=== PATIENT | male | born 1995 | race Caucasian/White ===

== ENCOUNTER 2017-06-24 16:34 | Emergency (ER) | payer OTHER ==
[~2017-06-24] VITALS: Ht 198.1 cm; Wt 116.2 kg
[2017-06-24] MEDS ORDERED: SERTRALINE HCL25 MG PO (19:03)
[2017-06-24] MEDS ORDERED: ATARAX,VISTARIL25 MG PO (19:03)
[2017-06-24] MEDS ORDERED: RISPERIDONE1 MG/1 ML PO (19:03)
[2017-06-24] MEDS ORDERED: ATARAX10 MG PO (19:06)
[2017-06-24] MEDS ORDERED: ZOLOFT100 MG PO (19:06)
[2017-06-25 01:19] LABS: HEMATOCRIT 36.9 % (38.0-50.0); MCH 29.2 PG (29.0-34.0); MCHC 34.1 G/DL (30.0-36.0); MCV 85.6 FL (86-99); MEAN PLAT.VOLUME 9.4 uM^3 (9.0-12.4); PLATELET COUNT 208 K/uL (156-360); RBC DIS.WIDTH-CV 12.8 % (11.8-14.6); RED BLOOD COUNT 4.31 M/uL (4.00-5.50); WHITE BLOOD COUNT 8.5 K/uL (4.1-10.2)
[2017-06-25 01:30] LABS: CHLORIDE 107 mEq/L (99-109); POTASSIUM 3.4 mEq/L (3.7-5.4); SODIUM 140 mEq/L (136-147)
[2017-06-25 01:32] LABS: GLUCOSE 122 mg/dL (70-99)
[2017-06-25 01:33] LABS: ANION GAP 9 MEQ/L (2-14)
[2017-06-25 01:34] LABS: TOTAL BILIRUBIN 0.3 mg/dL (0.0-1.0)
[2017-06-25 01:35] LABS: SERUM ETHYL ALCOHOL < 10 mg/dL
[2017-06-25 01:36] LABS: ALKALINE PHOSPHATASE 94 IU/L (3-129); GFR ESTIMATE (CALCULATED) > 59 mL/min/
[2017-06-25 01:37] LABS: UREA NITROGEN (BUN) 10 mg/dL (9-23)
[2017-06-25 10:30] LABS: ADD MIUA? NO; BILIRUBIN NEGATIVE; BLOOD NEGATIVE; COLOR STRAW ((YELLOW)); GLUCOSE (STRIP) NEGATIVE; KETONES NEGATIVE; LEUKOCYTES NEGATIVE; NITRITE NEGATIVE; PROTEIN (STRIP) NEGATIVE; SPECIFIC GRAVITY 1.005 (1.000-1.030); UROBILINOGEN 0.2 MG/DL (0.2-1.0)
[2017-06-25 10:41] LABS: AMPHETAMINE NEGATIVE (500 ng/mL); BARBITURATES NEGATIVE (200 ng/mL); BENZODIAZEPINES NEGATIVE (150 ng/mL); COCAINE NEGATIVE (150 ng/mL); INTERNAL CONTROLS VALID? YES; METHADONE NEGATIVE (200 ng/mL); METHAMPHETAMINE NEGATIVE (500 ng/mL); OPIATES (MORPHINE) NEGATIVE (100 ng/mL); OXYCODONE NEGATIVE (100 ng/mL); PHENCYCLIDINE NEGATIVE (25 ng/mL); PROPOXYPHENE NEGATIVE (300 ng/mL); THC CANNABINOIDS NEGATIVE (50 ng/mL); TRICYCLIC ANTIDEPRESSANTS NEGATIVE (300 ng/mL)
[2017-06-26] MEDS ORDERED: ZOLOFT100 MG PO (08:16)
[2017-06-26 12:26] VITALS: BP 118/67
== END 2017-06-26 12:43 | disposition home or self-care (01) ==
LOC: EME 16:34
PROVIDERS: Emergency Medicine
DX: F84.0 Autistic disorder (principal); F63.81 Intermittent explosive disorder; F39 Unspecified mood [affective] disorder; F41.9 Anxiety disorder, unspecified
CPT/HCPCS: 80053; 81003; 85027; 90832; 99281; 99285; G0480